=== PATIENT | female | born 1990 | race Caucasian/White ===

== ENCOUNTER → 2017-06-11 | Outpatient (CLI) | payer OTHER ==
--- NOTE | 2017-06-11 10:17 | DIAGNOSTIC IMAGING REPORT ---
ULTRASOUND SOFT TISSUES NECK CLINICAL HISTORY: Cervical lymphadenopathy. COMPARISON STUDY: No priors. FINDINGS: Real-time, grayscale, and color flow sonography of the soft tissues of the neck is performed to assess for lymphadenopathy. No pathologically enlarged lymph nodes are identified. There are scattered benign-appearing cervical lymph nodes seen in the neck bilaterally. These measure up to 5 mm in short axis. No concerning mass lesion or fluid collection is identified. IMPRESSION: 1. No pathologically enlarged lymph nodes are identified. 2. Scattered benign-appearing cervical lymph nodes are incidentally noted. Electronically signed by: Sam Harrell M.D. 06/11/2017 10:16 AM Dictated Date/Time: 06/11/2017 10:15 AM
== END | disposition home or self-care (01) ==
LOC: C.ULTR 09:38
PROVIDERS: ATTEND Family Medicine
DX: R59.0 Localized enlarged lymph nodes (principal)